=== PATIENT | male | born 1950 | race Caucasian/White ===

== ENCOUNTER 2016-12-16 17:41 | Inpatient (IN) | payer BC, MEDICARE ==
[~2016-12-16] VITALS: Ht 175.3 cm; Wt 73.5 kg
[2016-12-16] MEDS ORDERED: ASPI81TA44 PO (17:59)
[2016-12-16] MEDS ORDERED: LISI40TA4 PO (17:59)
[2016-12-16] MEDS ORDERED: AMLO5TAB2 PO (17:59)
[2016-12-16] MEDS ORDERED: ATEN50TA PO (17:59)
[2016-12-16] MEDS ORDERED: SIMV20TA6 PO (17:59)
--- NOTE | 2016-12-16 19:30 | NUR ---
RECEIVED PATIENT FROM DAY SHIFT NURSE. REPORT GIVEN AT BED SIDE. PATIENT LYING IN BED WITH NO SIGNS OF DISTRESS OR PAIN. CALL LIGHT PLACED WITHIN REACH OF PATIENT. FAMILY AT BEDSIDE. WILL CONTINUE TO MONITOR PATIENT THROUGH OUT SHIFT.
[2016-12-16 21:03] VITALS: BP 122/66
--- NOTE | 2016-12-17 06:55 | NUR ---
pt admitted s/p ORIF RIGHT SHOULDER , pt alert ,oriented. right shoulder on sling ,no numbness,no tingling, pain when moved, swollen and blister noted.vss,afebrile.right pelvis s/p bone marrow site noted red and inflammed. oliguric, voids in urinal.Picc line in place xray done to check for placement awaiting for result, aware. started iv line and given all antibiotics, no adverse effects on antibiotics, afebrile overnight with tmax of 99.3. will continue to monitor,all needs attended,
[2016-12-17 07:13] LABS: BASOPHILS % (AUTO) 0.3 % (0.0-2.0); EOSINOPHILS # (AUTO) 0.1 K/uL (0.0-0.7); EOSINOPHILS % (AUTO) 1.6 % (0.0-7.0); HEMATOCRIT 24.3 % (40-50); HEMOGLOBIN 8.2 G/DL (14.0-18.0); LYMPHOCYTES # (AUTO) 0.5 K/UL (0.8-4.8); LYMPHOCYTES % (AUTO) 9.7 % (20.5-51.5); MEAN CORPUSCULAR HEMOGLOBIN 31.3 UUG (27.0-31.0); MEAN CORPUSCULAR HGB CONC 34 g/dL (32.0-37.0); MEAN CORPUSCULAR VOLUME 92.9 FL (82.0-92.0); MONOCYTES # (AUTO) 0.6 K/UL (0.1-1.30); MONOCYTES % (AUTO) 10.1 % (0.0-11.0); NEUTROPHILS # (AUTO) 4.4 K/UL (1.8-8.9); NEUTROPHILS % (AUTO) 78.3 % (38.5-71.5); PLATELET COUNT (AUTO) 370 K/UL (150-450); RED BLOOD CELL COUNT(AUTO) 2.62 MIL/UL (4.7-6.1); WHITE BLOOD COUNT (AUTO) 5.6 K/UL (4.0-11.2)
[2016-12-17 07:27] LABS: THYROID STIMULATING HORMONE 1.902 mIU/mL (0.358-3.740)
[2016-12-17 08:05] LABS: BILIRUBIN,TOTAL 0.4 mg/dL (0.2-1.0); CREATININE 3.3 mg/dL (0.6-1.3); MAGNESIUM 2.2 mg/dL (1.8-2.4); PHOSPHOROUS 4.9 mg/dL (2.5-4.9); POTASSIUM 3.9 mmol/L (3.5-5.1); TOTAL PROTEIN, SERUM 6.7 g/dL (6.4-8.2)
[2016-12-17 08:18] VITALS: BP 147/72
--- NOTE | 2016-12-17 17:29 | NUR ---
DAILY NOTE PER MD OCAMPO WE CAN USE THE PICC LINE
--- NOTE | 2016-12-17 20:30 | NUR ---
PATIENT ALERT, AWAKE AND ORIENTED X4. ABLE TO MAKE NEEDS KNOWN. NO ACUTE DISTRESS NOTED. DENIES PAIN. PLEASANT, CALM AND COOPERATIVE TO CARE. PICC LINE INTACT AND PATENT, NO SIGNS AND SYMPTOMS OF INFECTION. VITAL SIGNS STABLE. CALL LIGHT WITHIN REACH. ALL NEEDS ATTENDED. WILL CONTINUE TO MONITOR.
[2016-12-17 20:36] VITALS: BP 114/67
--- NOTE | 2016-12-18 05:35 | NUR ---
PATIENT SLEPT COMFORTABLY THROUGHOUT THE SHIFT. AT BEDSIDE. CPAP WAS ON. NO OTHER COMPLAINTS NOTED. CALL LIGHT WITHIN REACH. ALL NEEDS ATTENDED. WILL CONTINUE TO MONITOR.
[2016-12-18 08:08] LABS: CREATININE 3.2 mg/dL (0.6-1.3); POTASSIUM 4.1 mmol/L (3.5-5.1)
[2016-12-18 08:27] VITALS: BP 124/82
--- NOTE | 2016-12-18 19:30 | NUR ---
RECEIVED PATIENT FROM DAY SHIFT NURSE. SHIFT REPORT GIVEN AT BEDSIDE. PATIENT LYING IN BED COMFORTABLY. FAMILY MEMBER AT BEDSIDE. PATIENT A/O X4 WITH NO SIGNS OF PAIN OR DISTRESS. PATIENT AFEBRILE. ON 3L O2 VIA NASAL CANULA. CALL LIGHT PLACED WITHIN REACH OF PATIENT. WILL CONTINUE TO MONITOR PATIENT THROUGH OUT SHIFT.
[2016-12-18 20:11] VITALS: BP 117/67
--- NOTE | 2016-12-19 06:55 | NUR ---
PATIENT SLEEPING COMFORTABLY DURING SHIFT. NO SIGNS OF PAIN OR DISTRESS. FAMILY AT BEDSIDE. ALL NEEDS ATTENDED, MEDICATIONS ADMINISTERED PRESCRIBED.
[2016-12-19 07:20] VITALS: BP 153/72
--- NOTE | 2016-12-19 08:15 | NUR ---
Received patient, awake, alert and oriented x4. With tolerable pain over right shoulder. Offered pain medications but refused. With intact PICC line, flushed and secured. With intact arm sling over right arm. Encouraged to call for needs. Call light within reach.
--- NOTE | 2016-12-19 11:11 | NUR ---
Up with occupational therapy. Morning care done. Tolerating therapy well.
--- NOTE | 2016-12-19 17:30 | NUR ---
Dressing changed over surgical site, right shoulder. Arm sling secured.
--- NOTE | 2016-12-19 19:35 | NUR ---
Received pt asleep in bed, but easily arousable to verbal stimuli. Family ( and son) present in room with pt. Pt is verbally responsive and able to make needs known. No apparent distress noted. Breathing even and unlabored with no SOB noted. Pt denies any pain or discomfort at this time. Call light within reach. Bed locked, in lowest position with side rails up x 2. All safety measures and fall precautions maintained. Will continue to monitor.
[2016-12-19 20:10] VITALS: BP 112/68
--- NOTE | 2016-12-20 05:37 | NUR ---
Pt slept comfortably throughout shift. Granddaughter at bedside. C-Pap machine on and in place. No apparent distress noted. No complaints of any pain or discomfort at this time and throughout shift. All needs anticipated and met. Tolerated all medications well. Call light within reach. Bed in lowest position, locked and side rails up x 2. All safety measures and fall precautions maintained.
--- NOTE | 2016-12-20 07:13 | NUR ---
Patient noted awake, resting on bed on a semi posey's position, alert and oriented x 4, bed noted on lowest position with his call light within reach. Displays no s/sx of pain, discomforts or any distress. All needs attended and anticipated. Patient's family member at bedside. Patient was encouraged to use call light whenever assistance is needed. Will continue to monitor patient closely.
[2016-12-20 08:05] VITALS: BP 131/71
--- NOTE | 2016-12-20 09:16 | NUR ---
Patient able to ambulate with PT with no s/sx of discomforts. Tolerated well.
--- NOTE | 2016-12-20 11:36 | NUR ---
patient noted awake, alert and oriented seated on the chair at his bedside together with family member with call light within reach watching television. no s/sx of distress. Displays no s/sx of discomforts, moaning or guarded positions. All needs were attended and anticipated. Encouraged patient to use call light whenever assistance is needed. Will continue to monitor closely.
--- NOTE | 2016-12-20 13:34 | NUR ---
Deskidding Machine Operator: SW met with pt at bedside to assess needs and provide support. Pt is a 66-year-old male admitted to ARU for functional impairment. Pt is alert and oriented x4 and presented with in a fatigued mood. Per pt, he was unable to sleep last night and was in some discomfort due to his fracture. Pt underwent ORIF prior to being transferred to ARU. Per pt, the fracture occurred after his gate crashed on his shoulder/arm when he tried to close it. He reports to use no DME at home and was independent with ADL's prior to incident. Per pt, he has strong support and lives at him with his and grandson. He stated his goal is "to go home." Per pt, he is using a cane now while in the hospital, and is hopeful that he will not need any DME when discharge home. Pt reported he was planning to continue working until the end of the summer, however now he is planning to take some time off and return home. SW engaged in active listening. SW provide supportive counseling to address issues of loss related to hospitalization. SW will provide linkage to case management.
--- NOTE | 2016-12-20 15:17 | NUR ---
Patient noted asleep lying on bed comfortably on a semi posey's position with call light within reach. Patient's at bedside. Displays no s/sx of distress or discomforts. No snoring, no moaning noted. patient easily arousable with IV 0.45 Sodium Chloride running well at 60 cc/hr via PICC line on left upper arm. no s/sx of infection on PICC line. Will continue to monitor patient closely.
--- NOTE | 2016-12-20 15:50 | NUR ---
Called Dr. Yung and reported the BUN result of 40 with no new order. Addendum: 12/20/16 at 1834 by TACHO SOMERS RN Called Dr. Tellez and reported the BUN result of 40 with no new order.
--- NOTE | 2016-12-20 18:39 | NUR ---
Patient noted awake sitting on the chair at bedside with patient's family member watching television. patient has sling on RUE. no s/sx of distress or discomforts. All needs attended and anticipated. call light within reach. patient was encouraged to use call light whenever assistance is needed.
--- NOTE | 2016-12-20 19:30 | NUR ---
RECEIVED PATIENT FROM DAY SHIFT NURSE. PATIENT A/O X4, NO SIGNS OF PAIN OR DISTRESS. SHIFT REPORT GIVEN AT BEDSIDE. PATIENT IN DINING ROOM EATING DINNER WITH FAMILY. ON CONTINUOUS IV FLUID. PERTINENT ASSESSMENTS DONE AT START OF SHIFT. CALL LIGHT PLACED WITHIN REACH OF PATIENT. WILL CONTINUE TO MONITOR PATIENT THROUGH OUT SHIFT.
[2016-12-20 20:28] VITALS: BP 115/60
--- NOTE | 2016-12-21 06:58 | NUR ---
PATIENT SLEPT COMFORTABLY THROUGH OUT THE NIGHT. NO SIGNS OF PAIN OR DISCOMFORT. ALL MEDICATIONS ADMINISTERED ORDERED. ALL NEEDS ATTENDED. SHIFT REPORT GIVEN AT BEDSIDE.
[2016-12-21 07:15] VITALS: BP 136/68
--- NOTE | 2016-12-21 13:36 | NUR ---
Interdisciplinary Rehab Summary
[2016-12-21 19:00] VITALS: BP 144/87
--- NOTE | 2016-12-21 19:30 | NUR ---
RECEIVED PATIENT FROM DAY SHIFT NURSE. PATIENT SITTING COMFORTABLY AT BEDSIDE WITH NO SIGNS OF PAIN OR DISTRESS. FAMILY MEMBER AT BEDSIDE. SHIFT REPORT GIVEN AT BEDSIDE. PERTINENT ASSESSMENTS DONE AT START OF SHIFT. CALL LIGHT PLACED WITHIN REACH OF PATIENT. WILL CONTINUE TO MONITOR PATIENT THROUGH OUT SHIFT.
--- NOTE | 2016-12-22 07:01 | NUR ---
PATIENT COMFORTABLE THROUGH OUT SHIFT. NO SIGNS OF PAIN OR DISTRESS. FAMILY AT BEDSIDE. ALL NEEDS ATTENDED TO. MEDICATIONS ADMINISTERED ORDERED. SHIFT REPORT GIVEN AT BEDSIDE.
[2016-12-22 08:41] VITALS: BP 117/71
--- NOTE | 2016-12-22 19:10 | NUR ---
Received patient awake, sitting in a chair, at bedside. Denies any pain/discomforts at this time. PICC line on SANCHO x 2 lumen intact and patent. No s/s of infiltration noted. Right humerus incision sites with steri strips dry and intact with swelling noted. Sling in used to limit mobility to affected area. Safety measures and fall precaution maintain. Continue current plan of care.
[2016-12-22 20:00] VITALS: BP 129/77
--- NOTE | 2016-12-23 05:18 | NUR ---
VS stable. Slept good. Daughter remains at bedside. Continue on IV/PO antibiotics without s/s of adverse reaction noted. No complaint presented all night. No significant event reported. All needs attended and met. Continue current plan of care.
--- NOTE | 2016-12-23 07:20 | NUR ---
Pt report received from job foreman nurse. Pt assessed to be awake, alert, and oriented x4. Pt states no pain or discomfort at this time but not sleeping well last night. No s/s of infection noted. All comfort and safety measures in place, call light within reach. Will continue to monitor.
[2016-12-23 07:58] LABS: BASOPHILS # (AUTO) 0.1 K/uL (0.0-8.0); BASOPHILS % (AUTO) 1.2 % (0.0-2.0); EOSINOPHILS # (AUTO) 0.1 K/uL (0.0-0.7); EOSINOPHILS % (AUTO) 2.4 % (0.0-7.0); HEMATOCRIT 24.9 % (36.7-47.1); HEMOGLOBIN 8.7 g/dL (12.5-16.3); LYMPHOCYTES # (AUTO) 0.8 K/uL (20.0-40.0); LYMPHOCYTES % (AUTO) 18.8 % (20.5-51.5); MEAN CORPUSCULAR HEMOGLOBIN 31.9 uug (23.8-33.4); MEAN CORPUSCULAR HGB CONC 35 g/dL (32.5-36.3); MEAN CORPUSCULAR VOLUME 91.3 fL (73.0-96.2); MONOCYTES # (AUTO) 0.3 K/uL (2.0-10.0); MONOCYTES % (AUTO) 7.6 % (0.0-11.0); NEUTROPHILS # (AUTO) 3.1 K/uL (1.8-8.9); PLATELET COUNT (AUTO) 358 K/uL (152-348); RED BLOOD CELL COUNT(AUTO) 2.73 MIL/uL (4.06-5.63); WHITE BLOOD COUNT (AUTO) 4.5 K/uL (3.6-10.2)
[2016-12-23 08:06] LABS: CREATININE 2.8 mg/dL (0.6-1.3); POTASSIUM 4.3 mmol/L (3.5-5.1)
[2016-12-23 08:16] VITALS: BP 120/71
[2016-12-23 10:04] LABS: BAND % (MANUAL) 3 % (0-10); EOSINOPHILS % (MANUAL) 2 % (0-8); LYMPHOCYTES % (MANUAL) 20 % (20-40); METAMYELOCYTES % 3 % (0-1); MONOCYTES % (MANUAL) 9 % (2-10); MYELOCYTES % 3 % (0-0); NEUTROPHILS % (MANUAL) 60 % (42-75)
--- NOTE | 2016-12-23 10:31 | NUR ---
Pt returned from working with PT, described feelings of nausea. Pt utilized emesis bag given to vomit. Pt states not having eaten much for breakfast prior to antibiotic and routine morning medications being taken. V/S stable 145/74, HR 82, and Temp. 98.3. Pt states feelings of nausea subsiding following vomiting episode x1. Crackers provided. Will continue to monitor closely.
--- NOTE | 2016-12-23 11:20 | NUR ---
Reagan Schwab from [facility] visited Pt regarding antibiotic medication to discuss supply upon d/c. He requested that the casey saw operator communicate date of d/c once confirmed, by contacting [phone]. Will endorse to oncoming shift.
--- NOTE | 2016-12-23 18:59 | NUR ---
Pt sitting comfortably in chair next to bed with at his side. No s/s of infection or any pain/acute distress noted at this time. Pt has remained stable during this shift. All comfort and safety measures in place. Call light within reach. Will endorse details to manufacturing shift supervisor nurse.
[2016-12-23 19:53] VITALS: BP 150/96
--- NOTE | 2016-12-23 20:02 | NUR ---
NSG:RECEIVED PATIENT SITTING IN CHAIR IN HIS ROOM. @ BEDSIDE. NO SIGNS OF PAIN OR DISTRESS NOTED THIS TIME. INSTRUCTED TO CALL NURSE FOR PAIN AND ASSISTANCE VIA CALL LIGHT.. CALL LIGHT WITHIN REACH OF PATIENT. BED IN LOW POSITION AND LOCKED. WILL CONTINUE TO MONITOR PATIENT THROUGH OUT SHIFT.
--- NOTE | 2016-12-24 00:12 | NUR ---
NSG: RESTING IN BED COMFORTABLY. NO S/S OF PAIN OR DISCOMFORT NOTED.
[2016-12-24 06:18] VITALS: BP 136/75
--- NOTE | 2016-12-24 06:35 | NUR ---
NSG: Remain cooperative with meds and care.VS stable. Slept well. son remains at bedside. Continue on 1/2 ns IVf 60cc/hrs, running well. patient is on PO and iv antibiotics. no s/s of adverse reaction noted. No significant event reported. All needs attended and met. Continue current plan of care.
--- NOTE | 2016-12-24 07:47 | NUR ---
Patient asleep lying on bed on a semi posey's position with family member at bedside. Call light noted within reach. All needs attended and anticipated. On IV 0.45% NS at 60 cc/hr running well on SANCHO PICC line. No s/sx of infection at PICC line. No s/sx of distress or discomforts at this time. Will continue to monitor closely.
[2016-12-24 09:54] VITALS: BP 138/71
--- NOTE | 2016-12-24 10:05 | NUR ---
Seen and examined by Dr. Ravi with no new order at this time.
--- NOTE | 2016-12-24 11:25 | NUR ---
Patient awake, alert sitting on bed with family members at bedside. On IV hydartion 0.45% NS running at 60 cc/hr via left upper arm PICC line. No s/sx of distress or discomforts noted. All needs attended and anticipated. Call light within reach. Encouraged patient to use call light whenever assistance is needed. Will continue to monitor.
--- NOTE | 2016-12-24 16:21 | NUR ---
Patient noted awake, alert and oriented, sitting on the chair at bedside while watching television with no signs and symptoms of distress/ discomforts. Call light within reach. All needs attended and anticipated. Offered snacks to patient. Encouraged patient to use call light whenever assistance is needed. Will continue to monitor patient closely.
--- NOTE | 2016-12-24 19:00 | NUR ---
RECEIVED PT SITTING ON THE BED AND EATING. AAO X4. FAMILY AT BEDSIDE. PICC LINE ON LEFT UPPER ARM, IV 0.45% NS RUNNING 60 ML/HR. NO ACUTE DISTRESS NOTED. NO C/O PAIN. SAFETY MEASURES MAINTAINED. CALL LIGHT WITHIN REACH. WILL CONTINUE TO MONITOR.
--- NOTE | 2016-12-24 19:24 | NUR ---
Patient alert and oriented awake, sitting at the chair at bedside watching television with call light within reach. All needs attended and anticipated. Encouraged patient to use call light whenever assistance is needed. Endorsed to incoming shift.
[2016-12-24 19:30] VITALS: BP 157/92
--- NOTE | 2016-12-25 06:34 | NUR ---
Pt slept comfortably t/o the night. Tolerated CPAP at night. Family at bedside. IV PICC line patent and intact. IV fluid running continuously 60 ml/ hr. Assisted to the bathroom as needed. All needs attended. Vital signs stable. Safety measures maintained. Call light within reach. Continue to monitor.
--- NOTE | 2016-12-25 07:10 | NUR ---
Patient noted asleep, lying on bed with head of bed elevated more than 45 degrees with his CPAP on. Patient easily arousable with no s/sx of distress or discomforts noted at this time. Call light within reach. Reminded the patient to use the call light whenever assistance is needed. Will continue to monitor closely.
[2016-12-25 08:00] VITALS: BP 139/85
--- NOTE | 2016-12-25 09:30 | NUR ---
Patient awake, alert sitting on the chair at his bedside. Ambulate with PT in stable condition.
--- NOTE | 2016-12-25 10:50 | NUR ---
Patient came back from physical therapy with no complaints of pain or any discomforts. No SOB or distress noted. All needs were attended and anticipated. Call light placed within reach. patient sat down on his chair at bedside while watching television. Reminded the patient to always use the call light whenever assistance is needed. Patient still on IV 0.45 % NS at 60cc/hr running good on his left upper arm PICC line, patent. PICC line noted no s/sx of infection or any redness around the site. Will continue to monitor closely.
--- NOTE | 2016-12-25 14:52 | NUR ---
Patient ambulated with physical therapy in stable condition with no s/sx of distress or any discomforts.
--- NOTE | 2016-12-25 18:52 | NUR ---
Patient noted awake, sitting on the chair at bedside with IV 0.45% NS infusing well at 60cc/hr on his left upper arm PICC line, patent. Call light within reach. No s/sx of distress or discomforts noted. Reminded patient to use call light whenever assistance is needed.
--- NOTE | 2016-12-25 19:46 | NUR ---
Received pt sitting up in chair eating dinner with family member in room. Awake, alert and oriented, verbally responsive and able to make needs known. L upper arm PICC line patent and intact, denies pain or discomfort at this time. All safety measures and fall precautions maintained. Call light within reach. Reinforced use of call light if in need of assistance.
[2016-12-25 20:00] VITALS: BP 149/81
--- NOTE | 2016-12-26 06:38 | NUR ---
Pt slept well throughout the night. Tolerated all medications well. Family at bedside. Denies any pain or discomfort. No acute distress noted. Call light within reach. All safety measures and fall precautions maintained. Will continue to monitor.
--- NOTE | 2016-12-26 09:12 | NUR ---
pt seen on rounding. pt vitals checked. slightly elevated blood pressure levels. bp meds given as prescribed. assessed picc line. picc line patent and flushed. pt given iv antibiotics as ordered. pt had bm and voided. will continue to monitor.
--- NOTE | 2016-12-26 18:34 | NUR ---
pt left at [address] wyman and dr chinchilla. pt got prescription for continue eval and treat. placed on chart. pt arrived back to the unit at 1740. vitals assessed. vitals stable. reconnected ns at 60 mls/hr. will continue to monitor.
--- NOTE | 2016-12-26 19:03 | NUR ---
pt stable throughout the day. no signs of compliations or acute distress. no new injuries noted. encouraged pt to drink more. dc prescriptions on chart. pt participated in therapy and took meds as prescribed. will endorse new orders to shift mechanic nurse.
[2016-12-26 20:00] VITALS: BP 132/69
--- NOTE | 2016-12-26 20:00 | NUR ---
Received pt sitting on the chair with family member at bedside. No acute distress noted. No complaints of pain or discomfort. PICC line patent and intact. No signs/symptoms of infection noted. Safety precautions observed. Call light within reach. All needs attended. Will continue to monitor.
--- NOTE | 2016-12-27 06:08 | NUR ---
pt slept well throughout the night. CPAP on during hrs of sleep. No acute distress noted. No complaints of pain. Grand daughter at bedside. Encouraged to verbalize needs and concerns. Call light within reach. All needs attended.
--- NOTE | 2016-12-27 08:15 | NUR ---
RECEIVED PATIENT ASLEEP. NO APPARENT DISTRESS. ON BIPAP. WITH ONGOING IVF OF 0.45% NS 1L AT 60 ML/HR INFUSING WELL OVER PICC LINE.
--- NOTE | 2016-12-27 09:04 | NUR ---
AWAKE, ALERT AND ORIENTED. SITING AT CHAIR. TOLERATED MEDICATIONS WELL. NO COMPLAINTS OF PAIN AT THIS TIME. MORNING CARE DONE. PICC LINE FLUSHED, PATENT.
[2016-12-27 09:13] VITALS: BP 138/79
--- NOTE | 2016-12-27 10:10 | NUR ---
Spoke to patient daughter Lois [phone] regarding discharge plan of care. Daughter is requesting patient stay longer in order to prepare the home for him to receive home health. Lois reassured that we will try our best to accommodate patient and depending on schedule delivery of IV antibiotics by [facility] and availability of Home Health Nurse.
--- NOTE | 2016-12-27 10:15 | NUR ---
Spoke to patient daughter Lois [phone] regarding discharge plan of care. Daughter is requesting patient stay longer in order to prepare the home for him to receive home health. Lois reassured that we will try our best to accommodate patient and depending on schedule delivery of IV antibiotics by [facility] and availability of Home Health Nurse.
--- NOTE | 2016-12-27 11:44 | NUR ---
DAUGHTER CALLED AND REQUESTED FOR PATIENT TO BE DISCHARGE AFTER 5 PM. WRAPPER DIPPER INFORMED
--- NOTE | 2016-12-27 12:15 | NUR ---
Spoke to director of ARU to get the go ahead as far as whether or not the patient can potentially stay until change of shift to accommodate family as well as received PM dose of IV antibiotic. Given the ok by director. According to [facility] no RN is available to give PM dose of IV Med. Reagan Nettles notified. Reagan notified pharmacy to start delivery of IV antibiotics in the morning.
--- NOTE | 2016-12-27 13:20 | NUR ---
Roge Abreu updated on the plan of care for patient. Patient to be picked up at 8:30 following IV antibiotics.
--- NOTE | 2016-12-27 19:30 | NUR ---
Received patient sitting up in chair. Family at bedside. Patient is alert and verbally responsive. Able to make needs known. Denies any pain and discomfort. No acute distress. Kept clean and dry. PICC line on SANCHO patent and intact. Infusing IVF 0.45% NS at 60 ml/hr. No s/s of fluid overload. All needs attended to promptly. Call light within reach. Will continue to monitor.
--- NOTE | 2016-12-27 21:00 | NUR ---
Patient discharge to home with family. Patient is alert and verbally responsive. Able to make needs known. No c/o pain and discomfort. No acute distress. No SOB. Kept clean and dry. Able to ambulate with assist. SANCHO PICC line flushed with NS. Patent and intact. Last dose of Meropenem IV given and also 9pm PO meds given before discharge per patients request. All belongings taken with patient. Discussed discharge packet with family.
--- NOTE | 2016-12-28 12:15 | NUR ---
Spoke to director of ARU to get the go ahead as far as whether or not the patient can potentially stay until change of shift to accommodate family as well as received PM dose of IV antibiotic. Given the ok by director. According to [facility] no RN is available to give PM dose of IV Med. Reagan Nettles notified. Reagan notified pharmacy to start delivery of IV antibiotics in the morning.
--- NOTE | 2016-12-28 13:45 | NUR ---
Had a call from the patient's daughter, Lois Robertson [ ], regarding the patient's Zyvox Rx. She stated that [facility] [contact - Kassandra; ; ] needs an authorization for the medication. Called [facility] Dominik HOLM [ ext. [phone]] regarding the authorization and she stated that she will check with their pharmacy. Also called [facility] [ ] and spoke to Pierre about the authorization and he submitted an urgent request. MIHAI/ALAYNA will follow-up. Addendum: 12/29/16 at 1753 by NATTY LOCKHART CM Called [facility] [ ] and spoke to Peggy. She confirmed that the patient was authorized to receive the whole month supply of Linezolid/Zyvox. Spoke to Dolly from [facility] [ ] and she tried to run the coverage but still did not get authorization. Called [facility] once again and spoke to Latrice, she called her assembly department supervisor and tried to clear the authorization. [facility] confirmed that they have the authorization. Spoke to Charline Robertson, pt's daughter [ ] and she was very thankful.
== END 2016-12-27 21:00 | disposition home health service (06) | DRG 559 ==
PROVIDERS: ADMIT Physical Medicine & Rehabilitation Pain Medicine; ATTEND Physical Medicine & Rehabilitation Pain Medicine
DX: M84.421D Pathological fracture, right humerus, subsequent encounter for fracture with routine healing (principal); N17.0 Acute kidney failure with tubular necrosis; I50.31 Acute diastolic (congestive) heart failure; C90.00 Multiple myeloma not having achieved remission; D68.59 Other primary thrombophilia; I48.92 Unspecified atrial flutter; I13.0 Hypertensive heart and chronic kidney disease with heart failure and stage 1 through stage 4 chronic kidney disease, or unspecified chronic kidney disease; M86.621 Other chronic osteomyelitis, right humerus; I27.2 Other secondary pulmonary hypertension; E78.5 Hyperlipidemia, unspecified; D50.9 Iron deficiency anemia, unspecified; G47.33 Obstructive sleep apnea (adult) (pediatric); N18.9 Chronic kidney disease, unspecified; R41.82 Altered mental status, unspecified; D63.8 Anemia in other chronic diseases classified elsewhere; I25.2 Old myocardial infarction; I34.0 Nonrheumatic mitral (valve) insufficiency; M10.9 Gout, unspecified; E66.01 Morbid (severe) obesity due to excess calories; Z68.23 Body mass index [BMI] 23.0-23.9, adult; M85.80 Other specified disorders of bone density and structure, unspecified site; I70.0 Atherosclerosis of aorta; N20.0 Calculus of kidney; N28.1 Cyst of kidney, acquired; Z87.891 Personal history of nicotine dependence; R74.8 Abnormal levels of other serum enzymes; M79.89 Other specified soft tissue disorders; R74.0 Nonspecific elevation of levels of transaminase and lactic acid dehydrogenase [LDH]; R91.1 Solitary pulmonary nodule; Z88.8 Allergy status to other drugs, medicaments and biological substances
CPT/HCPCS: 36415; 51798; 71010; 82306; 83735; 84100; 84443; 84520; 85025; 85651; 97110; 97112; 97116; 97165; 97530; 97535; A4663; J2020; J2185; J2543; J3490; J7050